=== PATIENT | female | born 1940 | race Caucasian/White ===

== ENCOUNTER 2016-06-14 15:25 | Emergency (ER) | payer MEDICARE, BC ==
[2016-06-14 17:34] VITALS: BP 106/65
--- NOTE | 2016-06-14 18:06 | UC ---
Respiratory Complaint HPI - HPI Summary HPI Summary: productive cough since yesterday. No sinus congestion. No ST or earache. No fever or vomiting. No history of asthma. Has history of intermittent afib, she is on Coumadin - History of Current Complaint Chief Complaint: UCRespiratory Stated Complaint: CHEST CONGESTION Time Seen by Provider: 06/14/16 17:51 Hx Obtained From: Patient Hx Last Menstrual Period: n/a Onset/Duration: Gradual Onset, Lasting Days - 2 Timing: Constant Severity Initially: Mild Severity Currently: Mild Character: Sputum Description: - "doesn't usually come out" Aggravating Factors: Exertion Alleviating Factors: Nothing Associated Signs And Symptoms: Positive: URI, Hoarseness. Negative: Dyspnea, Fever, Chills, Pleuritic Chest Pain, Wheezing, Hemoptysis, Dizziness, Calf Pain , Calf Swelling, Edema, Nasal Congestion - Risk Factors Pulmonary Embolism Risk Factors: Negative Pseudomonas Risk Factors: Negative Tuberculosis Risk Factors: Negative - Allergies/Home Medications Allergies/Adverse Reactions: Allergies Allergy/AdvReac Type Severity Reaction Status Date / Time No Known Allergies Allergy Verified 09/13/15 14:03 PMH/Surg Hx/FS Hx/Imm Hx Endocrine History Of: Reports: Thyroid Disease Denies: Diabetes Cardiovascular History Of: Reports: Cardiac Disorders - A-fib, Hypertension Respiratory History Of: Denies: COPD, Asthma GI/ History Of: Denies: Ulcer Cancer History Of: Denies: Breast Cancer Other History Of: Anticoagulant Therapy - Surgical History Surgical History: Yes Surgery Procedure, Year, and Place: COLONOSCOPY/BIOPSY/POLYPECTOMY 04/2012. APPENDECTOMY. HYSTERECTOMY. SPLENECTOMY. BOWEL RESCECTION. PARTIAL REMOVAL OF STOMACH - Family History Known Family History: Positive: Hypertension, Other - AF - Social History Occupation: Retired Lives: With Family Alcohol Use: None Alcohol Amount: 2 glasses of wine Substance Use Type: None Smoking Status (MU): Never Smoked Tobacco - Immunization History Most Recent Influenza Vaccination: 2012 Most Recent Tetanus Shot: 09/03/10 Most Recent Pneumonia Vaccination: unknown Review of Systems Constitutional: Negative Skin: Negative Eyes: Negative ENT: Negative Respiratory: Cough Cardiovascular: Negative, Other - can usually tell when she's in afib, but has not felt palpitations lately Gastrointestinal: Negative Genitourinary: Negative Motor: Negative Neurovascular: Negative Musculoskeletal: Negative Neurological: Negative Psychological: Negative All Other Systems Reviewed And Are Negative: Yes Physical Exam Triage Information Reviewed: Yes Appearance: Well-Appearing, No Pain Distress, Well-Nourished Vital Signs: Initial Vital Signs Temp 98.2 F 06/14/16 17:13 Resp 18 06/14/16 17:13 BP 106/65 06/14/16 17:13 Pulse Ox 98 06/14/16 17:13 Vital Signs Reviewed: Yes Eye Exam: Normal ENT Exam: Normal ENT: Positive: Pharynx normal, TMs normal, Muffled/hoarse voice - hoarse. Negative: Pharyngeal erythema Neck exam: Normal Neck: Positive: Supple Respiratory Exam: Normal Respiratory: Positive: Lungs clear, Normal breath sounds, No respiratory distress, No accessory muscle use, Other: - productive, harsh cough Cardiovascular Exam: Normal Musculoskeletal Exam: Normal Neurological Exam: Normal Psychological Exam: Normal Skin Exam: Normal UC Diagnostic Evaluation - Laboratory O2 Sat by Pulse Oximetry: 98 Respiratory Course/Dx - Differential Dx/Diagnosis Differential Diagnosis/HQI/PQRI: Bronchitis, Lower Resp Infection, Sinusitis Provider Diagnoses: URI Discharge - Discharge Plan Condition: Stable Disposition: HOME Prescriptions: Guaifenesin-Codeine [Cheratussin AC] 1 - 2 teasp PO Q6HR PRN #120 ml MDD 30ml PRN Reason: Cough Patient Education Materials: Upper Respiratory Infection (ED) Referrals: Shan Perez MD [Primary Care Provider] -
== END 2016-06-14 18:11 | disposition home or self-care (01) ==
LOC: UCCORT 15:25
DX: J06.9 Acute upper respiratory infection, unspecified (principal); Z79.01 Long term (current) use of anticoagulants
CPT/HCPCS: 93005; 99212; G0463

== ENCOUNTER 2016-06-22 12:26 | Emergency (ER) | payer MEDICARE, BC ==
[2016-06-22 13:37] VITALS: BP 99/70
--- NOTE | 2016-06-22 13:58 | UC ---
Respiratory Complaint HPI - HPI Summary HPI Summary: A week ago she was seen and Dx with a viral upper resp. She was given a cough suppressant which helped some but then the symptoms came back. They are now more in her chest. She has a rattling cough and feels congestion in her chest. She has been using a neti pot and so her nasal congestion seems to have resolved. [ End ] - History of Current Complaint Chief Complaint: UCRespiratory Stated Complaint: RATTLE COUGH,CONGESTION Time Seen by Provider: 06/22/16 13:43 Hx Obtained From: Patient Hx Last Menstrual Period: n/a ?: No Onset/Duration: Gradual Onset Timing: Constant Severity Initially: Mild Severity Currently: Moderate Character: Cough: Nonproductive Aggravating Factors: Nothing Alleviating Factors: Nothing Associated Signs And Symptoms: Positive: URI, Nasal Congestion - Risk Factors Pulmonary Embolism Risk Factors: Negative Cardiac Risk Factors: Hypertension Pseudomonas Risk Factors: Negative Tuberculosis Risk Factors: Negative - Allergies/Home Medications Allergies/Adverse Reactions: Allergies Allergy/AdvReac Type Severity Reaction Status Date / Time No Known Allergies Allergy Verified 06/22/16 13:36 PMH/Surg Hx/FS Hx/Imm Hx Previously Healthy: Yes Endocrine History Of: Reports: Thyroid Disease, Dyslipidemia Denies: Diabetes Cardiovascular History Of: Reports: Cardiac Disorders - A-fib, Hypertension, Atrial Fibrillation Respiratory History Of: Denies: COPD, Asthma GI/ History Of: Denies: Ulcer Neurological History Of: Denies: TIA Psychological History Of: Denies: Anxiety Cancer History Of: Denies: Breast Cancer Other History Of: Anticoagulant Therapy - Surgical History Surgical History: Yes Surgery Procedure, Year, and Place: COLONOSCOPY/BIOPSY/POLYPECTOMY 04/2012. APPENDECTOMY. HYSTERECTOMY. SPLENECTOMY. BOWEL RESCECTION. PARTIAL REMOVAL OF STOMACH - Family History Known Family History: Positive: Hypertension, Other - AF - Social History Occupation: Retired Lives: Alone Alcohol Use: None Alcohol Amount: 2 glasses of wine Substance Use Type: None Smoking Status (MU): Never Smoked Tobacco - Immunization History Most Recent Influenza Vaccination: 2012 Most Recent Tetanus Shot: 09/03/10 Most Recent Pneumonia Vaccination: unknown Review of Systems Constitutional: Fatigue Skin: Negative Eyes: Negative ENT: Negative Respiratory: Cough Cardiovascular: Palpitations Gastrointestinal: Negative Genitourinary: Negative Motor: Negative Neurovascular: Negative Musculoskeletal: Negative Neurological: Negative Psychological: Negative All Other Systems Reviewed And Are Negative: Yes Physical Exam Triage Information Reviewed: Yes Appearance: Well-Appearing, No Pain Distress, Well-Nourished Vital Signs: Initial Vital Signs Temp 98.7 F 06/22/16 13:33 Pulse 130 06/22/16 13:33 Resp 16 06/22/16 13:33 BP 99/70 06/22/16 13:33 Pulse Ox 97 06/22/16 13:33 Vital Signs Reviewed: Yes Eye Exam: Normal ENT Exam: Normal Dental Exam: Normal Neck exam: Normal Neck: Positive: 1 Respiratory Exam: Normal Cardiovascular: Positive: Tachycardia Abdominal Exam: Normal Musculoskeletal Exam: Normal Neurological Exam: Normal Psychological Exam: Normal Skin Exam: Normal UC Diagnostic Evaluation - Laboratory O2 Sat by Pulse Oximetry: 97 Respiratory Course/Dx - Course Course Of Treatment: History of Afib and with rapid heart rate with fatigue and low BP. Otherwise vitals stable. Speaking in complete sentences and no cardiac complaints. She feels it was respiratory. No one lives with her. 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 Discharge - Discharge Plan Condition: Fair Disposition: TRANS HIGHER LVL OF CARE FAC Referrals: Shan Perez MD [Primary Care Provider] -
== END 2016-06-22 14:17 | disposition short-term general hospital (02) ==
LOC: UCCORT 12:26
DX: I48.91 Unspecified atrial fibrillation (principal); I48.92 Unspecified atrial flutter; Z79.01 Long term (current) use of anticoagulants; R00.0 Tachycardia, unspecified; R05 Cough; R09.81 Nasal congestion; R53.83 Other fatigue; I10 Essential (primary) hypertension; E78.5 Hyperlipidemia, unspecified; E07.9 Disorder of thyroid, unspecified
CPT/HCPCS: 93005; 99212; G0463

== ENCOUNTER 2016-09-23 13:13 | Emergency (ER) | payer MEDICARE, BC ==
[2016-09-23 13:37] VITALS: BP 119/60
--- NOTE | 2016-09-23 13:50 | UC ---
Complaint Female HPI - HPI Summary HPI Summary: Patient has had 2 days of dysuria, denies fever, back pain or abdominal pain. - History Of Current Complaint Chief Complaint: UCGU Stated Complaint: URINARY COMPLAINT Hx Obtained From: Patient Hx Last Menstrual Period: n/a ?: No Onset/Duration: Sudden Onset, Lasting Days Timing: Lasting Days Severity Initially: Mild Severity Currently: Moderate Character: Cramping Aggravating Factor(s): Urination - Allergies/Home Medications Allergies/Adverse Reactions: Allergies Allergy/AdvReac Type Severity Reaction Status Date / Time Sulfa Antibiotics Allergy Hives Verified 09/23/16 13:37 Sulfamethoxazole Allergy Hives Verified 09/23/16 13:37 w/Trimethoprim [From Bactrim] Home Medications: Home Medications Premarin Cream 1 applic VAGINAL WEEKLY 09/23/16 [History Confirmed 09/23/16] PMH/Surg Hx/FS Hx/Imm Hx Previously Healthy: Yes Endocrine History Of: Reports: Thyroid Disease, Dyslipidemia Denies: Diabetes Cardiovascular History Of: Reports: Cardiac Disorders - A-fib, Hypertension, Atrial Fibrillation Respiratory History Of: Denies: COPD, Asthma GI/ History Of: Denies: Ulcer Neurological History Of: Denies: TIA Psychological History Of: Denies: Anxiety Cancer History Of: Denies: Breast Cancer Other History Of: Anticoagulant Therapy - Surgical History Surgical History: Yes Surgery Procedure, Year, and Place: COLONOSCOPY/BIOPSY/POLYPECTOMY 04/2012. APPENDECTOMY. HYSTERECTOMY-Complete 1982. SPLENECTOMY. BOWEL RESCECTION. PARTIAL REMOVAL OF STOMACH - Family History Known Family History: Positive: Hypertension, Other - AF - Social History Alcohol Use: None Alcohol Amount: 2 glasses of wine Substance Use Type: None Smoking Status (MU): Never Smoked Tobacco - Immunization History Most Recent Influenza Vaccination: 2016 Most Recent Tetanus Shot: 09/03/10 Most Recent Pneumonia Vaccination: unknown Review of Systems Constitutional: Negative Skin: Negative Eyes: Negative ENT: Negative Respiratory: Negative Cardiovascular: Negative Gastrointestinal: Abdominal Pain Genitourinary: Dysuria Motor: Negative Neurovascular: Negative Musculoskeletal: Negative Neurological: Negative Psychological: Negative All Other Systems Reviewed And Are Negative: Yes Physical Exam Triage Information Reviewed: Yes Appearance: Well-Appearing, Well-Nourished, Pain Distress Vital Signs: Initial Vital Signs Temp 97.2 F 09/23/16 13:23 Pulse 76 09/23/16 13:23 Resp 16 09/23/16 13:23 BP 119/60 09/23/16 13:23 Pulse Ox 97 09/23/16 13:23 Vital Signs Reviewed: Yes Eye Exam: Normal Eyes: Positive: Conjunctiva Clear ENT Exam: Normal ENT: Positive: Hearing grossly normal, Pharynx normal, TMs normal Dental Exam: Normal Neck exam: Normal Neck: Positive: Supple, Nontender, No Lymphadenopathy Respiratory Exam: Normal Respiratory: Positive: Chest non-tender, Lungs clear, Normal breath sounds Cardiovascular Exam: Normal Cardiovascular: Positive: RRR, No Murmur, Pulses Normal Bowel Sounds: Positive: Present Musculoskeletal Exam: Normal Musculoskeletal: Positive: Strength Intact, ROM Intact, No Edema Neurological Exam: Normal Neurological: Positive: Alert, Muscle Tone Normal Psychological Exam: Normal Skin Exam: Normal Complaint Female Dx - Course Course Of Treatment: hx obtained, exam performed, meds reviewed, UA, treated for UTI - Differential Dx/Diagnosis Differential Diagnosis/HQI/PQRI: Sexually Transmitted Disease, Ureteral Stone, Urinary Tract Infection Provider Diagnoses: UTI Discharge - Discharge Plan Condition: Stable Disposition: HOME Patient Education Materials: Urinary Tract Infection in Women (ED) Referrals: Shan Perez MD [Primary Care Provider] - Additional Instructions: 1. Take the medication as prescribed. 2. increase your fluid intake 3. follow up if you are not experiencing relief of symtpoms.
== END 2016-09-23 14:10 | disposition home or self-care (01) ==
LOC: UCCORT 13:13
DX: N39.0 Urinary tract infection, site not specified (principal); Z88.2 Allergy status to sulfonamides; E07.9 Disorder of thyroid, unspecified; E78.5 Hyperlipidemia, unspecified; Z90.710 Acquired absence of both cervix and uterus; Z90.81 Acquired absence of spleen
CPT/HCPCS: 81003; 87077; 87086; 87186; 99212; G0463

== ENCOUNTER 2017-02-05 14:09 | Emergency (ER) | payer MEDICARE, OTHER ==
[2017-02-05 14:37] VITALS: BP 116/79
--- NOTE | 2017-02-05 14:51 | UC ---
Respiratory Complaint HPI - HPI Summary HPI Summary: 76 yo female with cough x 5 days no f/c no n/v no sob cough has been productive c/o marked fatigue some palpitations splenectomy - History of Current Complaint Chief Complaint: UCGeneralIllness Stated Complaint: WEAK RESPIRATORY COMPLAINT Time Seen by Provider: 02/05/17 14:37 Hx Obtained From: Patient Hx Last Menstrual Period: n/a Onset/Duration: Gradual Onset, Lasting Days Timing: Constant Severity Initially: Mild Severity Currently: Moderate Pain Intensity: 0 Pain Scale Used: 0-10 Numeric Character: Cough: Productive Aggravating Factors: Nothing Alleviating Factors: Nothing Associated Signs And Symptoms: Positive: Negative - Risk Factors Pulmonary Embolism Risk Factors: Malignancy, Recent Travel - Allergies/Home Medications Allergies/Adverse Reactions: Allergies Allergy/AdvReac Type Severity Reaction Status Date / Time Ciprofloxacin [From Cipro] Allergy Unknown Verified 02/05/17 14:37 Reaction Details Sulfa Antibiotics Allergy Hives Verified 02/05/17 14:37 Sulfamethoxazole Allergy Hives Verified 02/05/17 14:37 w/Trimethoprim [From Bactrim] PMH/Surg Hx/FS Hx/Imm Hx Cardiovascular History: Atrial Fibrillation 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 APPENDECTOMY. HYSTERECTOMY-Complete 1982. SPLENECTOMY. SM BOWEL RESCECTION. PARTIAL REMOVAL OF STOMACH - Family History Known Family History: Positive: Hypertension, Other - AF - Social History Alcohol Use: Rare Alcohol Amount: 1 glasses of wine 02/02/2017 Substance Use Type: None Smoking Status (MU): Never Smoked Tobacco - Immunization History Most Recent Influenza Vaccination: 2016 Most Recent Tetanus Shot: 09/03/10 Most Recent Pneumonia Vaccination: unknown Review of Systems Constitutional: Fatigue Skin: Negative Eyes: Negative ENT: Negative Respiratory: Cough Cardiovascular: Negative Gastrointestinal: Negative Genitourinary: Negative Motor: Negative Neurovascular: Negative Musculoskeletal: Negative Neurological: Weakness Psychological: Negative 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 Negative: Nasal congestion, Nasal drainage, Trismus, Muffled/hoarse voice Neck: Positive: Supple, Nontender, No Lymphadenopathy Respiratory: Positive: No respiratory distress, No accessory muscle use, Crackles - both bases Cardiovascular: Positive: RRR, No Murmur Musculoskeletal: Positive: ROM Intact, No Edema Neurological: Positive: Alert Psychological Exam: Normal Skin Exam: Normal UC Diagnostic Evaluation - Laboratory O2 Sat by Pulse Oximetry: 91 - low/hypoxic - Radiology Xray Interpretation: Positive (See Comments) - bibasilar infiltrates/ cephalization/Sybil B lines Radiology Interpretation Completed By: ED Physician - EKG Cardiac Rate: NL Cardiac Rhythm: Sinus: Normal, LBBB: Normal Ectopy: PVCs ST Segment: Normal Respiratory Course/Dx - Course Course Of Treatment: D/W Dr. Mejia [facility]-. accepts pt - Differential Dx/Diagnosis Provider Diagnoses: CHF vs pneumonia vs other. Hypoxic on RA Discharge - Discharge Plan Condition: Guarded Disposition: TRANS HIGHER LVL OF CARE FAC
--- NOTE | 2017-02-05 15:25 | RAD ---
HISTORY: Cough, bibasilar rales COMPARISONS: None VIEWS: 4: Frontal dual-energy and lateral views of the chest. FINDINGS: CARDIOMEDIASTINAL SILHOUETTE: The cardiomediastinal silhouette is normal. NICOLE: The nicole are normal. PLEURA: The costophrenic angles are sharp. No pleural abnormalities are noted. LUNG PARENCHYMA: There is patchy alveolar opacification of the lung bases bilaterally ABDOMEN: The upper abdomen is clear. There is no subphrenic gas. BONES AND SOFT TISSUES: No bone or soft tissue abnormalities are noted. OTHER: None. IMPRESSION: PATCHY BIBASILAR ATELECTASIS VERSUS CONSOLIDATION. RECOMMEND FOLLOW-UP UNTIL RESOLUTION TO EXCLUDE UNDERLYING PULMONARY PARENCHYMAL PATHOLOGY
== END 2017-02-05 15:25 | disposition short-term general hospital (02) ==
LOC: UCCORT 14:09
DX: R05 Cough (principal); R53.83 Other fatigue; R00.2 Palpitations; R09.02 Hypoxemia; I48.91 Unspecified atrial fibrillation; Z79.01 Long term (current) use of anticoagulants; Z90.81 Acquired absence of spleen; Z90.710 Acquired absence of both cervix and uterus; Z88.1 Allergy status to other antibiotic agents; Z88.2 Allergy status to sulfonamides
CPT/HCPCS: 71020; 93005; 99213; G0463

== ENCOUNTER 2021-09-06 16:17 | Inpatient (IN) ==
[2021-09-06] MEDS ORDERED: Lactated Ringers 1000 ml BAG 1,000 ML IV ONE (17:45)
[2021-09-06] MEDS ORDERED: Ondansetron 4 mg VIAL 2 MG/ML 2 ml VIAL IV ONE (18:09)
[2021-09-06] MEDS ORDERED: Morphine 4 MG/ML VIAL (1 ml) IV ONE (18:09)
[2021-09-06] MEDS ORDERED: Iodixanol (CONTRAST) 320 MG/ML 100 ML SDV IV ONE (18:52)
[2021-09-06 19:05] LABS: Hematocrit 29 % (35-47); Hemoglobin 9.1 g/dL (12.0-16.0); Mean Corpuscular HGB Conc 32 g/dL (31-36); Mean Corpuscular Hemoglobin 22 pg (27-31); Mean Corpuscular Volume 70 fL (80-97); Mean Platelet Volume 9.1 fL (7.4-10.4); Platelet Count 297 10^3/uL (150-450); Red Blood Count 4.13 10^6 /uL (3.70-4.87); Red Cell Distribution Width 29 % (10-15); White Blood Count 6.3 10^3/uL (3.5-10.8)
[2021-09-06 19:20] LABS: Albumin 3.5 g/dL (3.2-5.2); Albumin/Globulin Ratio 1.2 (1-3); C Reactive Protein 75.85 mg/L (<8.01); Calcium 9.1 mg/dL (8.6-10.3); Globulin 2.9 g/dL (2-4); Potassium 3.8 mmol/L (3.5-5.0); Total Bilirubin 0.4 mg/dL (0.2-1.0); Total Protein 6.4 g/dL (6.4-8.9); eGFR CKD-EPI 47.8 (>60)
[2021-09-06 19:42] LABS: Urine Appearance Cloudy; Urine Bilirubin Negative (Negative); Urine Blood Negative (Negative); Urine Color Yellow; Urine Glucose Negative (Negative); Urine Ketones Negative (Negative); Urine Nitrite Negative (Negative); Urine Protein Negative (Negative); Urine Specific Gravity 1.014 (1.002-1.030); Urine Urobilinogen Negative (Negative)
[2021-09-06 19:43] LABS: Anisocytosis 1+; Burr Cells 1+; Hypochromasia 1+
[2021-09-06 19:44] LABS: Schistocytes 1+
[2021-09-06 19:45] LABS: ABS Basophils 0.1 10^3/ul (0-0.2); ABS Lymphocytes 0.7 10^3/ul (1.0-4.8); ABS Monocytes 1.4 10^3/ul (0-0.8); ABS Neutrophils 4.2 10^3/ul (1.5-7.7); Eosinophil % 0.5 %; Lymphocyte % 11.4 %; Nucleated Red Blood Cells % 0.1
[2021-09-06] MEDS ORDERED: Lactated Ringers 1000 ml BAG 1,000 ML IV SCH (23:45)
[2021-09-07] MEDS: Enoxaparin 40 MG/0.4 ML SYR SUBCUT SCH ×2 (01:16→21:20)
[2021-09-07] MEDS: Levothyroxine 100 MCG/5 ML VIAL IV SCH (07:13)
[2021-09-07] MEDS: Latanoprost 0.005% 2.5 ml BTL BOTH EYES SCH ×2 (08:55→21:13)
[2021-09-07] MEDS: Acetaminophen IV 1 GM/100ML 100 ML IV PRN (11:06)
[2021-09-07] MEDS: OLANzapine 5 mg TAB*ODT PO SCH (11:49)
[2021-09-07] MEDS: Ondansetron 4 mg VIAL 2 MG/ML 2 ml VIAL IV PRN (11:52)
[2021-09-07] MEDS: D5W 1/2 NS KCl 20 meq 1000 ml 1,000 ML IV SCH (17:31)
[2021-09-07] MEDS ORDERED: NS 0.9% 500 ml BAG 500 ML IV ONE (19:13)
[2021-09-07] MEDS ORDERED: METHYLTESTOSTERONE PO SCH (21:00)
[2021-09-07] MEDS ORDERED: ESTERIFIED ESTROGENS PO SCH (21:00)
[2021-09-08] MEDS: Ondansetron 4 mg VIAL 2 MG/ML 2 ml VIAL IV PRN ×2 (00:07→11:50)
[2021-09-08] MEDS: Levothyroxine 100 MCG/5 ML VIAL IV SCH ×2 (05:16→08:15)
[2021-09-08 05:51] LABS: Hematocrit 30 % (35-47); Hemoglobin 9.6 g/dL (12.0-16.0); Mean Corpuscular HGB Conc 32 g/dL (31-36); Mean Corpuscular Hemoglobin 23 pg (27-31); Mean Corpuscular Volume 71 fL (80-97); Platelet Count 245 10^3/uL (150-450); Red Blood Count 4.24 10^6 /uL (3.70-4.87); Red Cell Distribution Width 30 % (10-15); White Blood Count 7.4 10^3/uL (3.5-10.8)
[2021-09-08 06:03] LABS: Calcium 7.6 mg/dL (8.6-10.3); Potassium 4.2 mmol/L (3.5-5.0); eGFR CKD-EPI 26.5 (>60)
[2021-09-08 07:03] LABS: Acanthocytes 2+; Anisocytosis 3+; Target Cells 2+
[2021-09-08 07:05] LABS: Dohle Bodies Present
[2021-09-08 08:10] LABS: ABS Lymphocytes 0.8 10^3/ul (1.0-4.8); ABS Neutrophils 4.3 10^3/ul (1.5-7.7)
[2021-09-08] MEDS: OLANzapine 5 mg TAB*ODT PO SCH (08:11)
[2021-09-08] MEDS: Acetaminophen IV 1 GM/100ML 100 ML IV PRN (11:50)
[2021-09-08] MEDS: D5W 1/2 NS KCl 20 meq 1000 ml 1,000 ML IV SCH (11:59)
[2021-09-08] MEDS ORDERED: LORazepam 2 mg VIAL 1 ml IV PUSH PRN (13:09)
[2021-09-08] MEDS ORDERED: Lorazepam PYXIS KEY PRN (13:12)
[2021-09-08] MEDS: Latanoprost 0.005% 2.5 ml BTL BOTH EYES SCH (23:05)
[2021-09-09] MEDS: Morphine 2 MG/ML SYRINGE IV PRN ×2 (06:06→14:34)
[2021-09-09] MEDS: Ondansetron 4 mg VIAL 2 MG/ML 2 ml VIAL IV PRN ×2 (06:06→14:33)
[2021-09-09] MEDS: OLANzapine 5 mg TAB*ODT PO SCH (09:19)
[2021-09-09] MEDS ORDERED: Morphine 2 MG/ML SYRINGE IV PRN (16:19)
[2021-09-09] MEDS: Latanoprost 0.005% 2.5 ml BTL BOTH EYES SCH (21:24)
[2021-09-10] MEDS: OLANzapine 5 mg TAB*ODT PO SCH (09:31)
[2021-09-10] MEDS ORDERED: Morphine ORAL CONCENTRATE 5 MG/0.25 ML ORAL.SYRIN SL PRN (15:01)
[2021-09-10] MEDS ORDERED: Ondansetron ODT 4 mg TAB 4 MG TAB SL PRN (15:02)
[2021-09-10 17:40] LABS: Rapid COVID-19 Molecular Undetected (Undetected)
[2021-09-10] MEDS ORDERED: LORazepam 2 mg VIAL 1 ml IV PUSH PRN (17:42)
[2021-09-10] MEDS: Latanoprost 0.005% 2.5 ml BTL BOTH EYES SCH (20:41)
[2021-09-11 07:44] VITALS: BP 114/55
[2021-09-11] MEDS: OLANzapine 5 mg TAB*ODT PO SCH (07:58)
== END 2021-09-11 12:30 | disposition hospice, inpatient (51) | DRG 388 ==
LOC: ED 16:17 → EDHOLD 16:17 → OBSVTOIN 23:07 → INTOOBSV 23:07 → SUATTDRO 23:07 → EDHOLD 09-07 10:45 → SSU 09-07 10:57
PROVIDERS: ADMIT Physician Assistant; ATTEND Internal Medicine